=== PATIENT | female | born 2000 | race Two or more races ===

== ENCOUNTER 2018-08-09 14:47 | Inpatient (IN) | payer MEDICAID ==
[~2018-08-09] VITALS: Ht 167.6 cm; Wt 83.0 kg
[2018-08-11] MEDS ORDERED: FENTANYL PF 100 MCG/2ML IV PRN (00:30)
[2018-08-11] MEDS ORDERED: ONDANSETRON 2MG/ML, 2ML IVPush PRN (00:30)
[2018-08-11] MEDS ORDERED: OXYTOCIN 30U/ 0.9% NaCL 500ML 500 ML IV PRN (00:30)
[2018-08-11] MEDS ORDERED: CALCIUM CARBONATE 500 MG TAB.CHEW PO PRN (00:30)
[2018-08-11] MEDS ORDERED: OXYTOCIN 30U/ 0.9% NaCL 500ML 500 ML IV ONE (00:30)
[2018-08-11] MEDS ORDERED: D5%-LACTATED RINGERS 1,000 ML IV SCH (00:30)
[2018-08-11 00:49] LABS: BASOPHILS # (AUTO) 0.04 x10^3/uL (0-0.3); BASOPHILS % (AUTO) 0 % (0-1); EOSINOPHILS # (AUTO) 0.02 x10^3/uL (0-0.8); EOSINOPHILS % (AUTO) 0 % (1-7); LYMPHOCYTES # (AUTO) 1.29 x10^3/uL (1-6.1); LYMPHOCYTES % (AUTO) 10 % (22-44); MD NO; MEAN CORPUSCULAR HEMOGLOBIN 25.2 pg (27.0-34.8); MEAN CORPUSCULAR HGB CONC 32.3 g/dL (32.4-35.8); MEAN CORPUSCULAR VOLUME 78.1 fL (80-100); MEAN PLATELET VOLUME 8.5 fL (7.4-10.4); MONOCYTES # (AUTO) 0.61 x10^3/uL (0-1.4); MONOCYTES % (AUTO) 5 % (2-9); NEUTROPHILS # (AUTO) 10.51 x10^3/uL (1.8-8.0); NEUTROPHILS % (AUTO) 84 % (42-75); PLATELET COUNT 299 x10^3/uL (130-400); RED BLOOD COUNT 4.03 x10^6/uL (3.82-5.3); RED CELL DISTRIBUTION WIDTH 16.6 % (9.6-15.2)
[2018-08-11] MEDS ORDERED: OXYTOCIN 30U/ 0.9% NaCL 500ML 500 ML ONE ×2 (01:35→11:42)
[2018-08-11] MEDS ORDERED: NEWBORN KIT ONE (01:35)
[2018-08-11] MEDS: LACTATED RINGERS 1,000 ML IV SCH ×2 (01:40→13:17)
[2018-08-11] MEDS ORDERED: FENTANYL PF 100 MCG/2ML ONE ×2 (09:29→10:51)
[2018-08-11] MEDS: FENTANYL PF 100 MCG/2ML IVPush PRN ×2 (09:31→10:54)
[2018-08-11] MEDS ORDERED: FENTANYL/BUPIV./NS/PF 250 ML EPIDCONT SCH (10:31)
[2018-08-11] MEDS ORDERED: LACTATED RINGERS 1,000 ML IV SCH (10:31)
[2018-08-11] MEDS ORDERED: FENTANYL PF 500 MCG, BUPIVACAINE/PF 0.5%, 30ML 62.5 ML in SODIUM CHLORIDE 0.9% 177.5 ML EPIDCONT SCH (11:00)
[2018-08-11] MEDS ORDERED: EPHEDRINE 50 MG/ML, 1ML IVPush PRN (11:00)
[2018-08-11] MEDS ORDERED: NALOXONE 0.4 MG/ML, 1ML IVPush PRN (11:00)
[2018-08-11] MEDS ORDERED: LACTATED RINGERS 1,000 ML IVBOLUS PRN (11:00)
[2018-08-11] MEDS: OXYTOCIN 30U/ 0.9% NaCL 500ML 500 ML IV SCH ×2 (12:37→22:37)
[2018-08-11] MEDS ORDERED: RHOGAM FROM BLOOD BANK 1 NOTE EA IM/IV ONE (13:00)
[2018-08-11] MEDS ORDERED: OXYcodone IR 5MG TABLET PO PRN (13:00)
[2018-08-11] MEDS ORDERED: DOCUSATE 100 MG CAPSULE PO PRN (13:00)
[2018-08-11] MEDS ORDERED: ONDANSETRON 2MG/ML, 2ML IV PRN (13:00)
[2018-08-11] MEDS ORDERED: OXYTOCIN 10 UNITS/ML, 1ML IM PRN (13:00)
[2018-08-11] MEDS ORDERED: ACETAMINOPHEN 325 MG TABLET PO PRN (13:00)
[2018-08-11] MEDS ORDERED: MISOPROSTOL 200 MCG TABLET PR PRN (13:00)
[2018-08-11] MEDS ORDERED: OXYcodone/APAP 5/325MG TABLET PO PRN (13:00)
[2018-08-11] MEDS ORDERED: IBUPROFEN 600 MG TABLET ONE (13:13)
[2018-08-11] MEDS: IBUPROFEN 600 MG TABLET PO PRN ×2 (13:18→23:46)
[2018-08-11 14:10] VITALS: BP 109/72
[2018-08-11 14:49] VITALS: BP 109/72
[2018-08-11 17:34] VITALS: BP 109/68
[2018-08-11] MEDS ORDERED: MEASLES,MUMPS&RUBELLA VACC/PF 0.5 ML SQ-VACC ONE (19:30)
[2018-08-11 19:40] VITALS: BP 122/71
[2018-08-11 19:59] LABS: BASOPHILS # (AUTO) 0.03 x10^3/uL (0-0.3); BASOPHILS % (AUTO) 0 % (0-1); EOSINOPHILS % (AUTO) 0 % (1-7); LYMPHOCYTES # (AUTO) 1.33 x10^3/uL (1-6.1); LYMPHOCYTES % (AUTO) 8 % (22-44); MD NO; MEAN CORPUSCULAR HEMOGLOBIN 25.2 pg (27.0-34.8); MEAN CORPUSCULAR VOLUME 78.6 fL (80-100); MEAN PLATELET VOLUME 8.6 fL (7.4-10.4); MONOCYTES # (AUTO) 0.75 x10^3/uL (0-1.4); MONOCYTES % (AUTO) 5 % (2-9); NEUTROPHILS # (AUTO) 13.71 x10^3/uL (1.8-8.0); NEUTROPHILS % (AUTO) 87 % (42-75); PLATELET COUNT 256 x10^3/uL (130-400); RED BLOOD COUNT 3.08 x10^6/uL (3.82-5.3); RED CELL DISTRIBUTION WIDTH 17.3 % (9.6-15.2)
[2018-08-12 00:20] VITALS: BP 117/73
[2018-08-12 04:15] VITALS: BP 113/74
[2018-08-12] MEDS ORDERED: DIPH,PERTUSS(ACELL),TET VAC/PF NC IM-VACC ONE (05:00)
[2018-08-12] MEDS ORDERED: MEASLES,MUMPS&RUBELLA VACC/PF 0.5 ML SQ-VACC ONE ×2 (05:30→13:32)
[2018-08-12 07:40] VITALS: BP 119/79
[2018-08-12] MEDS: OXYTOCIN 30U/ 0.9% NaCL 500ML 500 ML IV SCH (08:37)
[2018-08-12] MEDS ORDERED: PRENATAL VIT/IRON/FA 1 EACH TABLET PO SCH (09:00)
[2018-08-12 11:50] VITALS: BP 109/69
[2018-08-12] MEDS: IBUPROFEN 600 MG TABLET PO PRN (12:06)
[2018-08-12] MEDS ORDERED: IBUP-1222 PO (12:41)
== END 2018-08-12 18:45 | disposition home or self-care (01) | DRG 807 ==
LOC: LDIP 08-11 00:28 → 2NW 08-11 13:50
PROVIDERS: ADMIT Obstetrics & Gynecology; ATTEND Obstetrics & Gynecology
PROC: 10E0XZZ Delivery of Products of Conception, External Approach (ICD-10-PCS; principal; 2018-08-11)
PROC: 0KQM0ZZ Repair Perineum Muscle, Open Approach (ICD-10-PCS; 2018-08-11)
DX: O98.82 Other maternal infectious and parasitic diseases complicating childbirth (principal); Z37.0 Single live birth; O70.1 Second degree perineal laceration during delivery; Z3A.40 40 weeks gestation of pregnancy; Z23 Encounter for immunization
CPT/HCPCS: 36415; J7121; 85025; 86850; 86900; 90715; G0378; J3010; J2590; J7120

== ENCOUNTER 2020-08-17 19:42 | Emergency (ER) | payer MEDICAID, OTHER ==
[~2020-08-17] VITALS: Ht 167.6 cm; Wt 78.7 kg
[~2020-08-17 19:42] MED LIST: IBUP-1222 PO
--- NOTE | 2020-08-17 19:57 | NUR ---
Pt brought to room by wheelchair from triage and able to ambulate to bed.
[2020-08-17] MEDS ORDERED: birth control PO (20:18)
[2020-08-17 21:38] VITALS: BP 123/75
== END 2020-08-17 21:40 | disposition home or self-care (01) ==
LOC: ED 20:12
DX: S16.1XXA Strain of muscle, fascia and tendon at neck level, initial encounter (principal); S39.012A Strain of muscle, fascia and tendon of lower back, initial encounter; S29.012A Strain of muscle and tendon of back wall of thorax, initial encounter; V49.59XA Passenger injured in collision with other motor vehicles in traffic accident, initial encounter; Y93.89 Activity, other specified; Y92.488 Other paved roadways as the place of occurrence of the external cause; Y99.8 Other external cause status
CPT/HCPCS: 72050; 72072; 72110; 99284